=== PATIENT | female | born 1955 | race Caucasian/White ===

== ENCOUNTER 2021-01-03 21:39 | Emergency (ER) | payer MEDICARE, OTHER ==
[2021-01-03] MEDS ORDERED: Adacel Vial IM ONE ×2 (22:10→22:18)
[2021-01-03] MEDS ORDERED: Augmentin 875-125 Tablet PO ONE (22:10)
--- NOTE | 2021-01-03 22:16 | ERPHSYRPT ---
- History of Present Illness Time Seen by Provider: 01/03/21 21:56 Source: patient, family Exam Limitations: no limitations Physician History: 65 years old left-handed dominant female presented in the ER with chief complaint of dog bite on the left outer forearm prior to arrival while she was playing with her dog who accidentally bit her. He is complaining of dull aching pain. There was bleeding initially but stopped with applying pressure. Dog is up-to-date with immunization. No difficulty movements of the wrist or fingers. Unsure about tetanus status. Occurred: just prior to arrival Quality: aching, burning Severity of Pain-Max: moderate Severity of Pain-Current: mild Extremities Pain Location: forearm: right Modifying Factors: Worsens With: movement Associated Symptoms: none Allergies/Adverse Reactions: morphine Allergy (Intermediate, Verified 01/03/21 22:04) Nausea and Vomiting Home Medications: Alprazolam 0.5 mg PO BID 01/03/21 [History] Levothyroxine Sodium [Unithroid] 50 mcg PO DAILY 01/03/21 [History] Simvastatin 20Mg [Zocor 20Mg] 20 mg PO HS 01/03/21 [History] Zolpidem Tartrate 10 mg [Ambien 10 MG] 10 mg PO HS 01/03/21 [History] - Review of Systems Constitutional: No Symptoms Eyes: No Symptoms Respiratory: No Symptoms Cardiac: No Symptoms Genitourinary Symptoms: No Symptoms Musculoskeletal: Injury Skin: Skin Lesions Neurological: No Symptoms Psychological: No Symptoms Endocrine: No Symptoms Hematologic/Lymphatic: No Symptoms Immunological/Allergic: No Symptoms - Nursing Vital Signs Nursing Vital Signs: Initial Vital Signs Temperature 98.5 F 01/03/21 22:15 Pulse Rate 82 01/03/21 22:15 Respiratory Rate 20 01/03/21 22:15 Blood Pressure 125/109 01/03/21 22:15 O2 Sat by Pulse Oximetry 97 01/03/21 22:15 Pain Scale Pain Intensity 0 - Physical Exam General Appearance: no apparent distress, alert Neck Exam: normal inspection, full range of motion Cardiovascular/Respiratory Exam: normal breath sounds, regular rate/rhythm Shoulder Exam: normal inspection, non-tender Elbow/Forearm Exam: normal ROM, soft tissue tenderness (Inverted L-shaped laceration total of 7 cm into subcutaneous fat with no obvious muscle tear. Intact distal neurovascular.) Hand Exam: normal inspection, non-tender, no evidence of injury, normal ROM Neuro/Tendon Exam: normal sensation, normal motor functions, normal tendon functions Mental Status Exam: alert, oriented x 3, cooperative Skin Exam: normal color SpO2 Interpretation: normal SpO2: 95 O2 Delivery: Room Air Procedures - Laceration/Wound Repair Right Dorsal Arm Time of Procedure: 22:14 Wound Location: Right, lower arm Wound Length (cm): 7 Wound's Depth, Shape: superficial, irregular Wound Explored: clean Irrigated: Yes Hibiclens Prep: Yes Anesthesia: 1% Lidocaine Volume Anesthetic (ccs): 5 Wound Repaired With: sutures Suture Size/Type: 4-0 Number of Sutures: 5 Layer Closure?: No Sterile Dressing Applied?: Yes Ordered Tests: Medication Summary Discontinued Medications Generic Name Dose Route Start Last Admin Trade Name Freq PRN Reason Stop Dose Admin Amoxicillin/Clavulanate Potassium 875 mg 01/03/21 22:10 01/03/21 22:23 Augmentin 875-125 Tablet PO 01/03/21 22:11 875 mg STAT ONE Administration Amoxicillin/Clavulanate Potassium Confirm 01/03/21 22:18 Augmentin 875-125 Tablet Administered 01/03/21 22:19 Dose 875 mg .ROUTE .STK-MED ONE Bacitracin Zinc Confirm 01/03/21 22:48 Baciguent Packet Administered 01/03/21 22:49 Dose 1 gm .ROUTE .STK-MED ONE Bacitracin Zinc 0.9 gm 01/03/21 23:09 01/03/21 23:21 Baciguent Packet TP 01/03/21 23:10 0.9 gm STAT ONE Administration Diphtheria/Tetanus/Acell Pertussis 0.5 ml 01/03/21 22:10 01/03/21 22:26 Adacel Vial IM 01/03/21 22:11 0.5 ml .ONCE ONE Administration Diphtheria/Tetanus/Acell Pertussis Confirm 01/03/21 22:18 Adacel Vial Administered 01/03/21 22:19 Dose 0.5 ml IM .STK-MED ONE - Progress Progress: improved Progress Note: 01/03/21 22:15 Laceration is repaired without any tension so that if it gets infected it can drain easily. As it will take long time for healing with secondary intention. Tetanus is updated. Started on Augmentin. Counseled pt/family regarding: diagnosis, need for follow-up - Departure Departure Disposition: Home Clinical Impression: Dog bite Qualifiers: Encounter type: initial encounter Qualified Code(s): W54.0XXA - Bitten by dog, initial encounter Forearm laceration Qualifiers: Encounter type: initial encounter Laterality: right Qualified Code(s): S51.811A - Laceration without foreign body of right forearm, initial encounter Condition: Stable Critical Care Time: No Referrals: NATALIA FELICIANO [Primary Care Provider] - (1-2 days for reevaluation) Instructions: Animal Bites (DC), Wound Care (DC) Additional Instructions: Take Tylenol as needed for pain. Keep it clean. Continue with antibiotics. Follow-up with primary care for reevaluation in 1 to 2 days. Return to ER for increasing pain swelling redness discharge/fever chills/difficulty movements of wrist or fingers etc. Prescriptions: Amoxicillin/Potassium Clav [Augmentin 875-125 Tablet] 875 mg PO BID 7 Days #14 tablet
[2021-01-03] MEDS ORDERED: Augmentin 875-125 Tablet ONE (22:18)
[2021-01-03] MEDS ORDERED: BACIGUENT PACKET ONE (22:48)
[2021-01-03] MEDS ORDERED: BACIGUENT PACKET TP ONE (23:09)
[2021-01-03 23:26] VITALS: BP 162/84; PULSE 68
[2021-01-04 00:28] VITALS: O2SAT 95
== END 2021-01-03 23:26 | disposition home or self-care (01) ==
LOC: ED 21:39
DX: S51.811A Laceration without foreign body of right forearm, initial encounter (principal); W54.0XXA Bitten by dog, initial encounter
CPT/HCPCS: 12002; 90471; 90715; 99284; A9270-GY

== ENCOUNTER 2024-03-18 18:10 | Emergency (ER) | payer MEDICARE ==
[2024-03-18 18:27] VITALS: TEMP 97.4
--- NOTE | 2024-03-18 18:32 | ERPHSYRPT ---
- History of Present Illness Time Seen by Provider: 03/18/24 18:18 Historian: patient Exam Limitations: no limitations Physician History: Pt states she awoke about 14 hours ago with a coughing episode with intermittent stabbing mid anterior chest pain radiating to her back up to 10/10 in severity, now 7/10 with episodes lasting up to 20 minutes. Pt denies abdominal pain, fever, chills, headache. Aspirin Treatment Today: 81 mg x 4, provided by ED Allergies/Adverse Reactions: morphine Allergy (Intermediate, Verified 03/18/24 18:18) Nausea and Vomiting Home Medications: ALPRAZolam [Alprazolam] 0.5 mg PO BID 01/03/21 [History] Levothyroxine Sodium [Unithroid] 50 mcg PO DAILY 01/03/21 [History] Simvastatin 20Mg [Zocor 20Mg] 20 mg PO HS 01/03/21 [History] Zolpidem Tartrate 10 mg [Ambien 10 MG] 10 mg PO HS 01/03/21 [History] Hx Tetanus, Diphtheria Vaccination/Date Given: No Hx Influenza Vaccination/Date Given: No Hx Pneumococcal Vaccination/Date Given: No - Review of Systems Constitutional: No Fever, No Chills Respiratory: Cough Cardiac: Chest Pain Abdominal/Gastrointestinal: No Abdominal Pain Neurological: No Headache - Past Medical History Pertinent Past Medical History: Yes Neurological History: No Pertinent History ENT History: No Pertinent History Cardiac History: No Pertinent History Respiratory History: No Pertinent History Endocrine Medical History: Hypothyroidism Musculoskeletal History: Osteoarthritis GI Medical History: No Pertinent History History: No Pertinent History Psycho-Social History: Anxiety Female Reproductive Disorders: No Pertinent History Other Medical History: TINY BONE SPUR, AND INFLAMMATION IN THE FOOT DURING X- RAY. - Past Surgical History Past Surgical History: Yes Neuro Surgical History: No Pertinent History Cardiac: No Pertinent History Respiratory: No Pertinent History Gastrointestinal: No Pertinent History Genitourinary: No Pertinent History Musculoskeletal: No Pertinent History Female Surgical History: Hysterectomy - Social History Smoking Status: Never smoker Exposure to second hand smoke: No Drug Use: none Patient Lives Alone: No - Nursing Vital Signs Nursing Vital Signs: Initial Vital Signs Temperature 97.4 F 03/18/24 18:11 Pulse Rate 94 H 03/18/24 18:11 Respiratory Rate 17 03/18/24 18:11 Blood Pressure 147/93 03/18/24 18:11 O2 Sat by Pulse Oximetry 94 L 03/18/24 18:11 Pain Scale Pain Intensity 7 - Physical Exam General Appearance: alert Eye Exam: PERRL/EOMI Ears, Nose, Throat Exam: TMs normal, pharynx normal Neck Exam: normal inspection Respiratory Exam: normal breath sounds Cardiovascular Exam: normal heart sounds Gastrointestinal/Abdomen Exam: normal bowel sounds Back Exam: normal inspection Extremity Exam: No pedal edema Neurologic Exam: alert, cooperative Skin Exam: warm, dry - Course EKG Interpreted by Me: RATE (94), Sinus Rhythm, NORMAL AXIS, Other (QTc = 463; ST depression in I, V3 - V5) - Radiology Exams Chest X-ray Interpretation: Interpreted by me, No Pneumonia Ordered Tests: Active Orders 24 hr Category Date Time Status EKG-ER Only STAT Care 03/18/24 18:35 Active IV Insertion STAT Care 03/18/24 18:35 Active CHEST 1 VIEW (PORTABLE) Stat Exams 03/18/24 19:39 Ordered AMYLASE Stat Lab 03/18/24 18:45 Completed CBC W DIFF Stat Lab 03/18/24 18:45 Completed CMP Stat Lab 03/18/24 18:45 Completed LIPASE Stat Lab 03/18/24 18:45 Completed MAGNESIUM Stat Lab 03/18/24 18:45 Completed TROPONIN Q4H Lab 03/18/24 18:45 Completed TROPONIN Q4H Lab 03/18/24 22:45 Ordered TROPONIN Q4H Lab 03/19/24 02:45 Ordered Medication Summary Generic Name Dose Route Start Last Admin Trade Name Freq PRN Reason Stop Dose Admin Sodium Chloride 1,000 mls @ 100 mls/hr 03/18/24 18:45 03/18/24 19:09 Sodium Chloride 0.9% 1000 Ml IV 04/17/24 18:44 100 mls/hr .Q10H JACQUES Administration Discontinued Medications Generic Name Dose Route Start Last Admin Trade Name Freq PRN Reason Stop Dose Admin Aspirin 324 mg 03/18/24 19:36 Aspirin 81 Mg Tab.Chew PO 03/18/24 19:37 STAT ONE Nitroglycerin 0.4 mg 03/18/24 18:36 03/18/24 19:09 Nitroglycerin 0.4 Mg (Ed) 0.4 Mg Tab.Subl SL 03/18/24 18:37 0.4 mg STAT ONE Administration Nitroglycerin Confirm 03/18/24 19:07 Nitroglycerin 0.4 Mg (Ed) 0.4 Mg Tab.Subl Administered 03/18/24 19:08 Dose 0.4 mg SL .STK-MED ONE Lab/Rad Data: Laboratory Result Diagrams 03/18/24 18:45 03/18/24 18:45 Laboratory Results 03/18/24 03/18/24 03/18/24 Range/Units 18:45 18:45 18:45 WBC (3.98-10.04) x10^3/uL RBC (3.93-5.22) x10^6/uL Hgb (11.2-15.7) g/dL Hct (34.1-44.9) % MCV (79.4-94.8) fL MCH (25.6-32.2) pg MCHC (32.2-35.5) g/dL RDW (11.7-14.4) % Plt Count (182-369) x10^3/uL MPV (9.4-12.3) fL Gran % (34.0-71.1) % Immature Gran % (Auto) (0.001-0.429) % Nucleat RBC Rel Count (0.00-0.2) % Eos # (Auto) (0.04-0.36) x10^3/uL Immature Gran # (Auto) (0.001-0.031) x10^3u/L Absolute Lymphs (auto) (1.18-3.74) x10^3/uL Absolute Monos (auto) (0.24-0.86) x10^3/uL Absolute Nucleated RBC (0.00-0.012) x10^3u/L Lymphocytes % (19.3-51.7) % Monocytes % (4.7-12.5) % Eosinophils % (0.7-5.8) % Basophils % (0.1-1.2) % Absolute Granulocytes (1.56-6.13) x10^3/uL Basophils # (0.01-0.08) x10^3/uL Sodium 137 (135-145) mmol/L Potassium 3.8 (3.5-5.1) mmol/L Chloride 106 (98-107) mmol/L Carbon Dioxide 18 L (22-30) mmol/L Anion Gap 16.3 H (5-15) MEQ/L BUN 18 H (7-17) mg/dL Creatinine 0.59 (0.52-1.04) mg/dL Estimated GFR 98.1 ML/MIN Glucose 187 H (74-106) mg/dL Calcium 9.5 (8.4-10.2) mg/dL Magnesium 1.8 (1.6-2.3) mg/dL Total Bilirubin 0.60 (0.2-1.3) mg/dL AST 37 H (14-36) U/L ALT 38 H (0-35) U/L Alkaline Phosphatase 122 (38-126) U/L Troponin I 0.102 H* (0.000-0.033) ng/mL Serum Total Protein 7.2 (6.3-8.2) g/dL Albumin 4.5 (3.5-5.0) g/dL Amylase 62 (30-110) U/L Lipase 72 (23-300) U/L 03/18/24 Range/Units 18:45 WBC 6.0 (3.98-10.04) x10^3/uL RBC 4.86 (3.93-5.22) x10^6/uL Hgb 15.2 (11.2-15.7) g/dL Hct 44.2 (34.1-44.9) % MCV 90.9 (79.4-94.8) fL MCH 31.3 (25.6-32.2) pg MCHC 34.4 (32.2-35.5) g/dL RDW 13.1 (11.7-14.4) % Plt Count 269 (182-369) x10^3/uL MPV 10.6 (9.4-12.3) fL Gran % 69.9 (34.0-71.1) % Immature Gran % (Auto) 0.2 (0.001-0.429) % Nucleat RBC Rel Count 0.0 (0.00-0.2) % Eos # (Auto) 0.08 (0.04-0.36) x10^3/uL Immature Gran # (Auto) 0.01 (0.001-0.031) x10^3u/L Absolute Lymphs (auto) 1.33 (1.18-3.74) x10^3/uL Absolute Monos (auto) 0.35 (0.24-0.86) x10^3/uL Absolute Nucleated RBC 0.00 (0.00-0.012) x10^3u/L Lymphocytes % 22.1 (19.3-51.7) % Monocytes % 5.8 (4.7-12.5) % Eosinophils % 1.3 (0.7-5.8) % Basophils % 0.7 (0.1-1.2) % Absolute Granulocytes 4.21 (1.56-6.13) x10^3/uL Basophils # 0.04 (0.01-0.08) x10^3/uL Sodium (135-145) mmol/L Potassium (3.5-5.1) mmol/L Chloride (98-107) mmol/L Carbon Dioxide (22-30) mmol/L Anion Gap (5-15) MEQ/L BUN (7-17) mg/dL Creatinine (0.52-1.04) mg/dL Estimated GFR ML/MIN Glucose (74-106) mg/dL Calcium (8.4-10.2) mg/dL Magnesium (1.6-2.3) mg/dL Total Bilirubin (0.2-1.3) mg/dL AST (14-36) U/L ALT (0-35) U/L Alkaline Phosphatase (38-126) U/L Troponin I (0.000-0.033) ng/mL Serum Total Protein (6.3-8.2) g/dL Albumin (3.5-5.0) g/dL Amylase (30-110) U/L Lipase (23-300) U/L - Progress Progress: unchanged Will see patient in: other (Dr. Patel accepted pt for transfer to [facility] ER(1951[facility] Counseled pt/family regarding: lab results, diagnosis, rad results Medical Desision Making - Diagnostic Testing Diagnostic test were ordered, analyzed, and reviewed by me: Yes Radiological Interpretation: Interpreted by me - Departure Departure Disposition: Transfer ([facility]) Clinical Impression: Chest pain, Elevated troponin, Non-STEMI (non-ST elevated myocardial infarction) Condition: Stable Critical Care Time: Yes Critical Care Time(excluding separately billable procedures): Critical 30-74 mins Referrals: ANDRADE,GUNNAR, MD [Primary Care Provider] - Follow up/PCP as directed
[2024-03-18 18:48] LABS: Absolute Neutrophil Ct (ANC) 4.21 x10^3/uL (1.56-6.13); BASOPHIL % 0.7 % (0.1-1.2); Basophil (Absolute #) 0.04 x10^3/uL (0.01-0.08); Eosinophil % 1.3 % (0.7-5.8); Eosinophil (Absolute #) 0.08 x10^3/uL (0.04-0.36); Hematocrit 44.2 % (34.1-44.9); Hemoglobin 15.2 g/dL (11.2-15.7); IMMATURE GRAN # 0.01 x10^3u/L (0.001-0.031); IMMATURE GRAN % 0.2 % (0.001-0.429); Lymphocyte (Absolute #) 1.33 x10^3/uL (1.18-3.74); Lymphocytes % 22.1 % (19.3-51.7); Mean Cell Volume 90.9 fL (79.4-94.8); Mean Corpuscular Hemoglobin 31.3 pg (25.6-32.2); Mean Corpuscular Hgb Concent. 34.4 g/dL (32.2-35.5); Mean Platelet Volume 10.6 fL (9.4-12.3); Monocyte (Absolute #) 0.35 x10^3/uL (0.24-0.86); Monocytes % 5.8 % (4.7-12.5); Neutrophil % 69.9 % (34.0-71.1); Platelet Count 269 x10^3/uL (182-369); Red Blood Count 4.86 x10^6/uL (3.93-5.22); Red Cell Distribution Width 13.1 % (11.7-14.4)
[2024-03-18 19:03] LABS: ALBUMIN 4.5 g/dL (3.5-5.0); ANION GAP 16.3 MEQ/L (5-15); BILIRUBIN,TOTAL 0.6 mg/dL (0.2-1.3); Calcium 9.5 mg/dL (8.4-10.2); Creatinine 1 0.59 mg/dL (0.52-1.04); EST GLOMERULAR FILTRATION RATE 98.1 ML/MIN; Potassium 3.8 mmol/L (3.5-5.1); Total Protein 7.2 g/dL (6.3-8.2)
[2024-03-18] MEDS ORDERED: Nitrostat 0.4 MG (ED) SL ONE ×2 (19:07→19:56)
[2024-03-18] MEDS ORDERED: Sodium Chloride 0.9% 1000 ML 1,000 ML ONE (19:08)
[2024-03-18] MEDS: Nitrostat 0.4 MG (ED) SL ONE ×2 (19:09→19:57)
[2024-03-18] MEDS: Sodium Chloride 0.9% 1000 ML 1,000 ML IV SCH (19:09)
[2024-03-18 19:54] VITALS: RESP 16
[2024-03-18] MEDS ORDERED: BABY ASPIRIN 81 MG CHEW ONE (19:54)
[2024-03-18] MEDS: BABY ASPIRIN 81 MG CHEW PO ONE (19:55)
[2024-03-18 21:03] VITALS: BP 130/87; PULSE 78; O2SAT 98
--- NOTE | 2024-03-18 21:14 | XRAY ---
Indication: Chest pain. Comparison: None Portable chest demonstrates mild right hemidiaphragm elevation with adjacent minimal subsegmental atelectasis/scarring. Moderate sized hiatal hernia with partial intrathoracic stomach left lung base with adjacent compressive atelectasis. Remaining heart and upper lungs unremarkable. Bony thorax intact with osteopenia, mild degenerative changes, and minimal dextroscoliosis. Impression: Nonacute chest with chronic features.
== END 2024-03-18 20:57 | disposition short-term general hospital (02) ==
LOC: ED 18:10
DX: R07.9 Chest pain, unspecified (principal); R79.89 Other specified abnormal findings of blood chemistry; I21.4 Non-ST elevation (NSTEMI) myocardial infarction; Z79.899 Other long term (current) drug therapy
CPT/HCPCS: 36000; 36415; 71045; 80053; 82150; 83690; 83735; 84484; 85025; 93005; 99285; 99291; A9270-GY

== ENCOUNTER 2025-05-12 22:28 | Emergency (ER) | payer MEDICARE ==
[2025-05-12 23:00] VITALS: RESP 20; TEMP 95.6
--- NOTE | 2025-05-12 23:20 | ERPHSYRPT ---
- History of Present Illness Time Seen by Provider: 05/12/25 22:45 Source: patient, family Exam Limitations: no limitations Patient Subjective Stated Complaint: pt states that she has had blood in her urine for the past 2 day Triage Nursing Assessment: pt ambulated into the er; pt is axo x4; c/o hematuria; pt denies pain, pt states 10/10 pain when urinating; skin PDW; no respiratory distress present; pt unable to urinate; vitals wnl Physician History: This is a 69-year-old white female patient arrives by private vehicle accompanied by her spouse and is a patient Dr. Arellano. Patient has noticed hematuria grossly for the last 2 days. Patient is on Brilinta secondary to cardiac issues. She also complains of vague left flank and vague left lower quadrant abdominal discomfort. Patient denies chest pain. Patient denies shortness of breath. Patient has a history of hypertension, hypothyroidism, CHF, depression, anxiety and renal stones requiring lithotripsy in the past. Timing/Duration: day(s) (2) Activites at Onset: none Quality: burning (With urination), dullness (Left flank and left lower quadrant), pressure (Left flank and left lower quadrant) Onset Location: LLQ, left flank Pain Radiation: LLQ, left flank Severity of Pain-Max: mild (To moderate) Severity of Pain-Current: mild Prior abdominal problems: none Sexual intercourse history: non-contributory Modifying Factors: Improves With: nothing Associated Symptoms: abdominal pain (Left lower quadrant), dysuria Allergies/Adverse Reactions: morphine Allergy (Intermediate, Verified 03/18/24 18:18) Nausea and Vomiting triamcinolone [From Kenalog] Adverse Reaction (Verified 05/12/25 22:43) Home Medications: ALPRAZolam [Alprazolam] 0.5 mg PO Q6HPRN PRN 05/12/25 [History] Carvedilol 3.125 mg [Coreg 3.125 MG] 0.5 tab PO BID 05/12/25 [History] Cyanocobalamin (Vitamin B-12) [Vitamin B12] 1,000 mcg PO DAILY 05/12/25 [History] Ezetimibe 10 mg [Zetia 10 MG] 10 mg PO DAILY 05/12/25 [History] Inclisiran Sodium [Leqvio] 284 mg SQ Q180D 05/12/25 [History] Levothyroxine Sodium [Synthroid] 50 mcg PO DAILY 05/12/25 [History] Sacubitril/Valsartan [Entresto 24 mg-26 mg Tablet] 1 each PO DAILY 05/12/25 [History] Sertraline HCl 50 mg [Zoloft 50 mg Tablet] 50 mg PO DAILY 05/12/25 [History] Spironolactone 25 mg [Aldactone 25 MG] 12.5 mg PO DAILY 05/12/25 [History] Ticagrelor [Brilinta] 90 mg PO BID 05/12/25 [History] Zolpidem Tartrate 10 mg [Ambien 10 MG] 10 mg PO DAILY 05/12/25 [History] Hx Tetanus, Diphtheria Vaccination/Date Given: No Hx Influenza Vaccination/Date Given: No Hx Pneumococcal Vaccination/Date Given: No Travel Risk - International Travel Have you traveled outside of the country in past 3 weeks: No - Emerging Infectious Disease Are you exhibiting symptoms associated with any current EIDs: No - Review of Systems Constitutional: No Symptoms Eyes: No Symptoms Ears, Nose, & Throat: No Symptoms Respiratory: No Symptoms Cardiac: No Symptoms Abdominal/Gastrointestinal: Abdominal Pain (Left lower quadrant) Genitourinary Symptoms: Dysuria, Hematuria Musculoskeletal: No Symptoms Skin: No Symptoms Neurological: No Symptoms Psychological: No Symptoms Endocrine: No Symptoms Hematologic/Lymphatic: No Symptoms Immunological/Allergic: No Symptoms All Other Systems: Reviewed and Negative - Past Medical History Pertinent Past Medical History: Yes Neurological History: No Pertinent History ENT History: No Pertinent History Cardiac History: No Pertinent History Respiratory History: No Pertinent History Endocrine Medical History: Hypothyroidism Musculoskeletal History: Osteoarthritis GI Medical History: No Pertinent History History: No Pertinent History Psycho-Social History: Anxiety Female Reproductive Disorders: No Pertinent History Other Medical History: TINY BONE SPUR, AND INFLAMMATION IN THE FOOT DURING X- RAY. - Past Surgical History Past Surgical History: Yes Neuro Surgical History: No Pertinent History Cardiac: No Pertinent History Respiratory: No Pertinent History Gastrointestinal: No Pertinent History Genitourinary: No Pertinent History Musculoskeletal: No Pertinent History Female Surgical History: Hysterectomy Other Surgical History: lithotripsy - Social History Smoking Status: Never smoker Exposure to second hand smoke: No Drug Use: none - Social Determinants of Health Will the patient participate in the screening: Declined to provide - Nursing Vital Signs Nursing Vital Signs: Initial Vital Signs Pulse Rate 77 05/12/25 22:40 Blood Pressure 118/65 05/12/25 22:40 O2 Sat by Pulse Oximetry 96 05/12/25 22:40 Pain Scale Pain Intensity 0 - Physical Exam General Appearance: no apparent distress, alert, anxiety Eye Exam: PERRL/EOMI, eyes nml inspection Ears, Nose, Throat Exam: normal ENT inspection, moist mucous membranes Neck Exam: normal inspection, non-tender, supple, full range of motion Respiratory Exam: normal breath sounds, lungs clear, airway intact, No chest tenderness, No respiratory distress Cardiovascular Exam: regular rate/rhythm, normal heart sounds, normal peripheral pulses Gastrointestinal/Abdomen Exam: soft, normal bowel sounds, tenderness (Mild tenderness left lower quadrant to palpation), guarding (Mild tenderness left lower quadrant to palpation) Pelvic Exam: not done Rectal Exam: not done Back Exam: normal inspection, normal range of motion, CVA tenderness (Left side), No vertebral tenderness Extremity Exam: normal inspection, normal range of motion, pelvis stable Neurologic Exam: alert, oriented x 3, cooperative, rubber boots and shoes repairer II-XII nml as tested, nml cerebellar function, nml station & gait, sensation nml Skin Exam: normal color, warm, dry Lymphatic Exam: No adenopathy SpO2 Interpretation: normal SpO2: 97 - Course Nursing assessment & vital signs reviewed: Yes Ordered Tests: Active Orders 24 hr Category Date Time Status ABDOMEN AND PELVIS W/0 CONTRAS [CT] Stat Exams 05/13/25 01:06 Completed CBC W DIFF Stat Lab 05/12/25 23:40 Completed CMP Stat Lab 05/12/25 23:40 Completed PROTIME WITH INR Stat Lab 05/12/25 23:40 Completed UA W/RFX UR CULTURE Stat Lab 05/13/25 00:22 Completed Lab/Rad Data: Laboratory Result Diagrams 05/12/25 23:40 05/12/25 23:40 Laboratory Results 05/13/25 05/12/25 05/12/25 Range/Units 00:22 23:40 23:40 WBC (3.98-10.04) x10^3/uL RBC (3.93-5.22) x10^6/uL Hgb (11.2-15.7) g/dL Hct (34.1-44.9) % MCV (79.4-94.8) fL MCH (25.6-32.2) pg MCHC (32.2-35.5) g/dL RDW (11.7-14.4) % Plt Count (182-369) x10^3/uL MPV (9.4-12.3) fL Gran % (34.0-71.1) % Immature Gran % (Auto) (0.001-0.429) % Nucleat RBC Rel Count (0.00-0.2) % Eos # (Auto) (0.04-0.36) x10^3/uL Immature Gran # (Auto) (0.001-0.031) x10^3u/L Absolute Lymphs (auto) (1.18-3.74) x10^3/uL Absolute Monos (auto) (0.24-0.86) x10^3/uL Absolute Nucleated RBC (0.00-0.012) x10^3u/L Lymphocytes % (19.3-51.7) % Monocytes % (4.7-12.5) % Eosinophils % (0.7-5.8) % Basophils % (0.1-1.2) % Absolute Granulocytes (1.56-6.13) x10^3/uL Basophils # (0.01-0.08) x10^3/uL PT 10.0 (9.4-12.5) SECONDS INR 0.89 (0.8-3.0) Sodium 133 L (135-145) mmol/L Potassium 4.0 (3.5-5.1) mmol/L Chloride 104 (98-107) mmol/L Carbon Dioxide 22 (22-30) mmol/L Anion Gap 11.3 (5-15) MEQ/L BUN 18 H (7-17) mg/dL Creatinine 0.85 (0.52-1.04) mg/dL Estimated GFR 74.1 ML/MIN Glucose 110 H (74-106) mg/dL Calcium 8.9 (8.4-10.2) mg/dL Total Bilirubin 0.50 (0.2-1.3) mg/dL AST 29 (14-36) U/L ALT 21 (0-35) U/L Alkaline Phosphatase 94 (38-126) U/L Serum Total Protein 7.1 (6.3-8.2) g/dL Albumin 4.3 (3.5-5.0) g/dL Urine Color Yellow (Yellow) Urine Appearance Clear (Clear) Urine pH 5.5 (4.6-8.0) Ur Specific [place] 1.010 (1.005-1.030) Urine Protein Negative (Negative) Urine Glucose (UA) Negative (Negative) mg/dL Urine Ketones Negative (Negative) Urine Blood Large A (Negative) Urine Nitrite Negative (Negative) Urine Bilirubin Negative (Negative) Urine Urobilinogen 0.2 (0.2) mg/dL Ur Leukocyte Esterase Negative (Negative) U Hyaline Cast (Auto) NONE SEEN (0-2) /LPF Urine Microscopic RBC 51-100 A (0-5) /HPF Urine Microscopic WBC 0-2 (0-5) /HPF Ur Epithelial Cells None Seen (None Seen) /HPF Urine Bacteria None Seen (None Seen) /HPF Urine Culture Reflexed NO (NO) 05/12/25 Range/Units 23:40 WBC 5.4 (3.98-10.04) x10^3/uL RBC 4.76 (3.93-5.22) x10^6/uL Hgb 14.3 (11.2-15.7) g/dL Hct 44.0 (34.1-44.9) % MCV 92.4 (79.4-94.8) fL MCH 30.0 (25.6-32.2) pg MCHC 32.5 (32.2-35.5) g/dL RDW 13.2 (11.7-14.4) % Plt Count 275 (182-369) x10^3/uL MPV 9.3 L (9.4-12.3) fL Gran % 58.0 (34.0-71.1) % Immature Gran % (Auto) 0.2 (0.001-0.429) % Nucleat RBC Rel Count 0.0 (0.00-0.2) % Eos # (Auto) 0.15 (0.04-0.36) x10^3/uL Immature Gran # (Auto) 0.01 (0.001-0.031) x10^3u/L Absolute Lymphs (auto) 1.50 (1.18-3.74) x10^3/uL Absolute Monos (auto) 0.54 (0.24-0.86) x10^3/uL Absolute Nucleated RBC 0.00 (0.00-0.012) x10^3u/L Lymphocytes % 28.0 (19.3-51.7) % Monocytes % 10.1 (4.7-12.5) % Eosinophils % 2.8 (0.7-5.8) % Basophils % 0.9 (0.1-1.2) % Absolute Granulocytes 3.10 (1.56-6.13) x10^3/uL Basophils # 0.05 (0.01-0.08) x10^3/uL PT (9.4-12.5) SECONDS INR (0.8-3.0) Sodium (135-145) mmol/L Potassium (3.5-5.1) mmol/L Chloride (98-107) mmol/L Carbon Dioxide (22-30) mmol/L Anion Gap (5-15) MEQ/L BUN (7-17) mg/dL Creatinine (0.52-1.04) mg/dL Estimated GFR ML/MIN Glucose (74-106) mg/dL Calcium (8.4-10.2) mg/dL Total Bilirubin (0.2-1.3) mg/dL AST (14-36) U/L ALT (0-35) U/L Alkaline Phosphatase (38-126) U/L Serum Total Protein (6.3-8.2) g/dL Albumin (3.5-5.0) g/dL Urine Color (Yellow) Urine Appearance (Clear) Urine pH (4.6-8.0) Ur Specific [place] (1.005-1.030) Urine Protein (Negative) Urine Glucose (UA) (Negative) mg/dL Urine Ketones (Negative) Urine Blood (Negative) Urine Nitrite (Negative) Urine Bilirubin (Negative) Urine Urobilinogen (0.2) mg/dL Ur Leukocyte Esterase (Negative) U Hyaline Cast (Auto) (0-2) /LPF Urine Microscopic RBC (0-5) /HPF Urine Microscopic WBC (0-5) /HPF Ur Epithelial Cells (None Seen) /HPF Urine Bacteria (None Seen) /HPF Urine Culture Reflexed (NO) - Progress Progress: re-examined, unchanged Air Movement: good Progress Note: 05/13/25 02:00 My medical decision making and the assignment of moderate complexity of this patient's medical issue today is based on review of the patient's past medical history, reviewed patient's medication list, reviewed patient drug allergy list, history present notes and physical findings on examination. The workup in this patient includes placement of an intravenous line, CBC, CMP, urine, PTT/INR, urinalysis and CT scan abdomen pelvis without contrast. Differential diagnosis includes was not limited to urinary tract infection, dehydration, anemia, cystitis, ureterolithiasis I interpreted the patient's laboratory data results. Based on laboratory data results, the patient has gross hematuria without urinary tract infection. 05/13/25 02:[address] scan of the abdomen pelvis without contrast was interpreted by the radiologist. Impression states no acute abdominal or pelvic pathology. There is evidence of bilateral lateral liver lobe hypodense lesions. The appendix is visualized and there is of acute appendicitis. The gallbladder has a single large gallstone within it. There is no evidence of acute cholecystitis. Blood Culture(s) Obtained: No Antibiotics given: No Counseled pt/family regarding: lab results, diagnosis, need for follow-up, rad results Medical Desision Making - Independent Historian Additional History obtained from: Spouse - Diagnostic Testing Radiological Interpretation: Reviewed by me, Teleradiologist Report - Risk of complications Low Risk: Low risk of morbidity from additional dx testing or treatment - Departure Departure Disposition: Home Clinical Impression: Hematuria Condition: Stable Critical Care Time: No Referrals: JOVANY KAPOOR [Primary Care Provider, [facility]] - Follow up/PCP as directed Additional Instructions: Drink plenty of clear liquids before advancing your diet. Call your primary care provider on 05/15/2025 to make arrangements for follow-up appointment for further evaluation and management. Make sure you discuss possible referral to urology or dermatology.
[2025-05-12 23:42] LABS: BASOPHIL % 0.9 % (0.1-1.2); Basophil (Absolute #) 0.05 x10^3/uL (0.01-0.08); Eosinophil (Absolute #) 0.15 x10^3/uL (0.04-0.36); Hematocrit 44.0 % (34.1-44.9); Hemoglobin 14.3 g/dL (11.2-15.7); IMMATURE GRAN # 0.01 x10^3u/L (0.001-0.031); IMMATURE GRAN % 0.2 % (0.001-0.429); Lymphocyte (Absolute #) 1.50 x10^3/uL (1.18-3.74); Mean Corpuscular Hemoglobin 30.0 pg (25.6-32.2); Mean Corpuscular Hgb Concent. 32.5 g/dL (32.2-35.5); Monocyte (Absolute #) 0.54 x10^3/uL (0.24-0.86); NUCLEATED RBC # 0.00 x10^3u/L (0.00-0.012); NUCLEATED RBC % 0.0 % (0.00-0.2); Platelet Count 275 x10^3/uL (182-369); Red Blood Count 4.76 x10^6/uL (3.93-5.22); White Blood Count 5.4 x10^3/uL (3.98-10.04)
[2025-05-12 23:56] LABS: Calcium 8.9 mg/dL (8.4-10.2); Carbon Dioxide 22.0 mmol/L (22-30); Creatinine 1 0.85 mg/dL (0.52-1.04); EST GLOMERULAR FILTRATION RATE 74.1 ML/MIN; Glucose 110.0 mg/dL (74-106); INR 0.89 (0.8-3.0); PROTIME 10.0 SECONDS (9.4-12.5); Potassium 4.0 mmol/L (3.5-5.1); SGOT/AST 29.0 U/L (14-36); SGPT/ALT 21.0 U/L (0-35); Total Protein 7.1 g/dL (6.3-8.2)
[2025-05-13 00:44] LABS: Glucose, Urine Negative (Negative); Protein,Urine Dip Negative (Negative); RBC 51-100 /HPF (0-5); WBC 0-2 /HPF (0-5)
[2025-05-13 01:59] VITALS: O2SAT 97
--- NOTE | 2025-05-13 02:23 | XRAY ---
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 TECHNIQUE: Non-contrast CT of the abdomen and pelvis was performed, with the following protocol: axial images, and reconstructed coronal and sagittal images. No intravenous contrast was administered. One of the following dose reduction techniques was utilized for this exam: Automated exposure control, adjustment of the mA and/or kV according to patient size, and use of iterative reconstruction. FINDINGS: Liver The liver measures 16.8 cm in craniocaudal length. A new small hypodense lesion is seen in the left hepatic lobe measuring 1.8 cm. The previously documented right-lobe hypodense lesion has decreased to 1 cm (was 2.2 cm). Another smaller anterior right-lobe hypodensity remains stable. Liver parenchyma appears otherwise normal. Gallbladder and Biliary System A new hyperdense gallstone is present. No wall thickening or pericholecystic fluid. Pancreas: Pancreatic head, body, and tail are visualized and appear normal in size and density. No pancreatic masses or calcifications were noted. Spleen: Normal in size, shape, and density. No splenic lesions or masses were identified. Kidneys and Adrenal Glands New tiny right renal mid- and lower-calyceal gravels (1?2 mm). 80-100 HU Resolution of the prior left renal tiny gravel. No hydronephrosis. Adrenals are unremarkable.. Stomach and Esophagus More enlarged sliding hiatal hernia, now containing the gastric fundus and upper body. Lung Bases Stable 9-mm left anterior basal lower-lobe pulmonary nodule. New fibrotic bands in both lower lobes. Appendix: The appendix is normal in size without sudheer appendiceal fat stranding, and without an appendicolith. No evidence of appendiceal abscess or perforation. Pelvic Organs Urinary Bladder: Normal in contour and wall thickness. No intraluminal lesions. Uterus normal with stable bilateral Essure devices. No adenxal masses seen Bowel / Mesentery Stable, non-complicated colonic diverticulosis, most prominent at the sigmoid. No obstruction. Peritoneum / Retroperitoneum No free fluid. No significant adenopathy. Bones / Soft Tissues Osteopenia with lumbar spondylotic changes. No lytic or sclerotic lesions. IMPRESSION: 1. No acute abdominal or pelvic pathology identified on non-contrast CT. 2. New right renal tiny calyceal gravels (1?2 mm). 3. Resolution of the previously seen left renal gravel. 4. New left-lobe hepatic hypodense lesion measuring 1.8 cm; characterization limited on non-contrast CT. 5. Interval reduction of the previously noted right-lobe hepatic lesion to 1 cm (was 2.2 cm). 6. Stable smaller anterior right-lobe hepatic lesion. 7. More enlarged sliding hiatal hernia, now containing the gastric fundus and upper body, correlating clinically with possible reflux symptoms. 8. New hyperdense gallbladder stone, without signs of acute cholecystitis. 9. New fibrotic bands in both lower lung lobes. 10. Stable 9-mm left anterior lower-lobe pulmonary nodule; unchanged from prior. 11. Stable colonic diverticulosis, most prominent in the sigmoid, without complication. 12. Osteopenia and lumbar spondylotic changes, unchanged. Electronically Signed by: Francois Esqueda MD. (05/13/2025 02:22:18 EST)
[2025-05-13 03:02] VITALS: BP 115/69; PULSE 66
== END 2025-05-13 03:09 | disposition home or self-care (01) ==
LOC: ED 22:28
DX: R31.0 Gross hematuria (principal); R10.A2 Flank pain, left side; R10.32 Left lower quadrant pain; I11.0 Hypertensive heart disease with heart failure; I50.9 Heart failure, unspecified; Z79.02 Long term (current) use of antithrombotics/antiplatelets; Z79.899 Other long term (current) drug therapy